=== PATIENT | female | born 1930 | race Caucasian/White ===

== ENCOUNTER 2018-04-30 15:36 | Emergency (ER) | payer OTHER ==
--- NOTE | 2018-04-30 16:21 | RAD REPORT ---
EXAM DESCRIPTION: CT - CTHCSPWOC - 04/30/2018 4:00 pm CLINICAL HISTORY: Trauma, head and neck injury. fall, head injury COMPARISON: Head C Spine Mpr Wo Con dated 08/08/2016 TECHNIQUE: Axial 5 mm thick images of the head were obtained. Axial 2 mm thick images of the cervical spine were obtained with sagittal and coronal reconstruction images generated and reviewed. All CT scans are performed using dose optimization technique as appropriate and may include automated exposure control or mA/KV adjustment according to patient size. FINDINGS: CT HEAD WITHOUT CONTRAST: No acute hemorrhage, hydrocephalus or extra-axial collection is identified.Mild generalized brain atr ophy is present with mild periventricular and deep white matter chronic microvascular ischemic change s.No areas of brain edema or midline shift. The paranasal sinuses and mastoids are clear.The calvarium is intact. CT CERVICAL SPINE WITHOUT CONTRAST: No fracture or subluxation.Moderate lower cervical degenerative changes.No prevertebral soft tissues swelling is identified. IMPRESSION: No acute intracranial or cervical spine findings. Moderate lower cervical spondylosis.
--- NOTE | 2018-04-30 16:34 | RAD REPORT ---
EXAM DESCRIPTION: RAD - Pelvis - 04/30/2018 4:19 pm CLINICAL HISTORY: PAIN Trauma, fall, pain. COMPARISON: Pelvis dated 06/25/2017 FINDINGS: Left total hip arthroplasty noted. No hardware complication evident. Degenerative changes are present in the right hip. No acute fracture or dislocation seen. IMPRESSION: No acute process identified.
--- NOTE | 2018-04-30 16:35 | RAD REPORT ---
EXAM DESCRIPTION: RAD - Hip Left 2 View - 04/30/2018 4:25 pm CLINICAL HISTORY: PAIN Fall, trauma, left hip pain COMPARISON: Hip Left 2 View dated 06/25/2017 FINDINGS: Left total hip arthroplasty is noted. No evidence of hardware complication. Vascular calci fications are present. An acute fracture is not detected.
--- NOTE | 2018-04-30 16:37 | RAD REPORT ---
EXAM DESCRIPTION: RAD - Femur Left - 04/30/2018 4:25 pm CLINICAL HISTORY: PAIN Fall, left hip pain COMPARISON: Pelvis dated 04/30/2018; Hip Left 2 View dated 04/30/2018 FINDINGS: Left total hip arthroplasty is noted. No evidence of hardware complication. 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 No joint effusion. No acute fracture or dislocation seen. IMPRESSION: No acute finding evident.
--- NOTE | 2018-04-30 16:49 | EDPHYS ---
Physician Documentation [facility] Name: Zeynep Stein Age: 87 yrs Sex: Female : 1930 Arrival Date: 04/30/2018 Time: 15:40 Bed 18 Private MD: ED Physician Boni Alejandre HPI: 04/30 16:16 This 87 yrs old Female presents to ER via EMS with complaints of Fall Injury. rn 16:16 Details of fall: The patient fell from an upright position. Onset: The symptoms/episode rn began/occurred just prior to arrival. Associated injuries: The patient sustained injury to the head, left hip. Severity of symptoms: At their worst the symptoms were mild, in the emergency department the symptoms are unchanged. The patient has experienced a previous episode. The patient has been recently seen by a physician:. 1 week s/p hip surgery, fell today from standing, hit head on bookshelf, then hit head on ground, no LOC, remembers all event. Reports mild pain to left hip.. Historical: - Allergies: 17:05 PENICILLINS; sg 17:05 Keflex; sg 17:05 Sulfa (Sulfonamide Antibiotics); sg - PMHx: 17:05 breast cancer; Diabetes - NIDDM; Hypothyroidism; sg - PSHx: 17:05 Hysterectomy; R side breast surgery and removal of lymphnodes; sg - Immunization history: Last tetanus immunization:. - Family history:: not pertinent. - Social history:: Smoking status: Patient/guardian denies using tobacco. - Hospitalizations: : No recent hospitalization is reported. ROS: 16:16 Constitutional: Negative for fever, chills, and weight loss, Eyes: Negative for injury, rn pain, redness, and discharge, Neck: Negative for injury, pain, and swelling, Cardiovascular: Negative for chest pain, palpitations, and edema, Respiratory: Negative for shortness of breath, cough, wheezing, and pleuritic chest pain, Abdomen/GI: Negative for abdominal pain, nausea, vomiting, diarrhea, and constipation, MS/Extremity: + left hip pain Skin: Negative for injury, rash, and discoloration, Neuro: + headache, no weakness/numbness Exam: 16:16 Constitutional: This is a well developed, well nourished patient who is awake, alert, rn and in no acute distress. Head/Face: Normocephalic, atraumatic. Eyes: Pupils equal round and reactive to light, extra-ocular motions intact. Lids and lashes normal. Conjunctiva and sclera are non-icteric and not injected. Cornea within normal limits. Periorbital areas with no swelling, redness, or edema. Neck: in ccollar, no midline tenderness Cardiovascular: Regular rate and rhythm with a normal S1 and S2. No gallops, murmurs, or rubs. Normal PMI, no JVD. No pulse deficits. Respiratory: Lungs have equal breath sounds bilaterally, clear to auscultation and percussion. No rales, rhonchi or wheezes noted. No increased work of breathing, no retractions or nasal flaring. Abdomen/GI: Soft, non-tender, with normal bowel sounds. No distension or tympany. No guarding or rebound. No evidence of tenderness throughout. Back: No spinal tenderness. No costovertebral tenderness. Full range of motion. MS/ Extremity: Pulses equal, no cyanosis. Neurovascular intact. + mild tenderness mid left thigh and proximal thigh Neuro: Awake and alert, GCS 15, oriented to person, place, time, and situation. Cranial nerves II-XII grossly intact. Motor strength 5/5 in all extremities. Sensory grossly intact. Vital Signs: 15:40 BP 162 / 70; Pulse 87; Resp 16; Pulse Ox 96% on R/A; Pain 10/10; sg [place] Coma Score: 15:46 Eye Response: spontaneous(4). Verbal Response: oriented(5). Motor Response: obeys iw commands(6). Total: 15. Trauma Score (Adult): 15:46 Eye Response: spontaneous(1); Verbal Response: oriented(1); Motor Response: obeys iw commands(2); Systolic BP: > 89 mm Hg(4); Respiratory Rate: 10 to 29 per min(4); [place] Score: 15; Trauma Score: 12 MDM: 15:41 Patient medically screened. rn 16:47 Differential diagnosis: contusion, fracture, sprain, strain. Differential diagnosis: rn closed head injury. Data reviewed: vital signs, nurses notes, lab test result(s), radiologic studies, CT scan, plain films, and as a result, I will discharge patient. Counseling: I had a detailed discussion with the patient and/or guardian regarding: the historical points, exam findings, and any diagnostic results supporting the discharge/admit diagnosis, radiology results, the need for outpatient follow up, to return to the emergency department if symptoms worsen or persist or if there are any questions or concerns that arise at home. Special discussion: I discussed with the patient/guardian in detail that at this point there is no indication for admission to the hospital. It is understood, however, that if the symptoms persist or worsen the patient needs to return immediately for re-evaluation. 04/30 15:48 Order name: CT Head C Spine; Complete Time: 16:37 rn 04/30 15:48 Order name: XRAY Pelvis; Complete Time: 16:37 rn 04/30 15:48 Order name: XRAY Hip LEFT 2 view; Complete Time: 16:37 rn 04/30 15:48 Order name: XRAY Femur LEFT; Complete Time: 16:47 rn Administered Medications: 17:16 Drug: [place] (7.5 mg-325 mg) 1 tabs Route: PO; sg 18:30 Follow up: Response: No adverse reaction; Pain is decreased sg Disposition: 04/30/18 16:48 Discharged to Home. Impression: Contusion of left hip, Superficial injury of head. - Condition is Stable. - Discharge Instructions: Contusion, Head Injury, Adult. - Medication Reconciliation Form, Thank You Letter, Antibiotic Education, Prescription Opioid Use form. - Follow up: Private Physician; When: As needed; Reason: Recheck today's complaints, Re-evaluation by your physician. - Problem is new. - Symptoms have improved. Signatures: Dispatcher [employer] EDJeremy Lowe RN RN Boni Alejandre MD MD turnstile collector: (The following items were deleted from the chart) 17:47 16:48 04/30/2018 16:48 Discharged to Home. Impression: Contusion of left hip; sg Superficial injury of head. Condition is Stable. Forms are Medication Reconciliation Form, Thank You Letter, Antibiotic Education, Prescription Opioid Use. Follow up: Private Physician; When: As needed; Reason: Recheck today's complaints, Re-evaluation by your physician. Problem is new. Symptoms have improved. rn
--- NOTE | 2018-04-30 16:49 | ER ---
Nurse's Notes [facility] Name: Zeynep Stein Age: 87 yrs Sex: Female : 1930 Arrival Date: 04/30/2018 Time: 15:40 Bed 18 Private MD: Diagnosis: Contusion of left hip;Superficial injury of head Presentation: 04/30 15:42 Presenting complaint: EMS states: pt fell from standing at home, was recently iw discharged from [facility] rehab for left hip fracture, pt hit back of head on dresser, c/o pain to head, neck, left hip. Care prior to arrival: Cervical collar in place. Mechanism of Injury: Fall from standing position. Trauma event details: Injury occurred in the [facility], Injury occurred: at home. Injury occurred: April 30, 2018. 15:42 Acuity: SAQIB 3 iw 15:42 Method Of Arrival: EMS: [facility] iw 16:00 Transition of care: patient was not received from another setting of care. Onset of sg symptoms was April 30, 2018. Risk Assessment: Do you want to hurt yourself or someone else? Patient reports no desire to harm self or others. Initial Sepsis Screen: Does the patient meet any 2 criteria? No. Patient's initial sepsis screen is negative. Does the patient have a suspected source of infection? No. Patient's initial sepsis screen is negative. Triage Assessment: 16:00 General: Appears in no apparent distress. uncomfortable, Behavior is calm, cooperative, sg appropriate for age. Trauma Activation: Alert Physician: ED Physician; Name: Dr. Alejandre; Notified At: 15:35; Arrived At: 15:35 Physician: General Surgeon; Name: N/A; Notified At: 15:35; Arrived At: Specialty not needed Physician: Radiology; Name: Whit Mason; Notified At: 15:35; Arrived At: 15:35 Physician: Respiratory; Name: N/A; Notified At: 15:35; Arrived At: N/A Physician: Lab; Name: N/A; Notified At: 15:35; Arrived At: N/A Historical: - Allergies: 17:05 PENICILLINS; sg 17:05 Keflex; sg 17:05 Sulfa (Sulfonamide Antibiotics); sg - PMHx: 17:05 breast cancer; Diabetes - NIDDM; Hypothyroidism; sg - PSHx: 17:05 Hysterectomy; R side breast surgery and removal of lymphnodes; sg - Immunization history: Last tetanus immunization:. - Family history:: not pertinent. - Social history:: Smoking status: Patient/guardian denies using tobacco. - Hospitalizations: : No recent hospitalization is reported. Screenin:00 Abuse screen: Denies threats or abuse. Denies injuries from another. Nutritional sg screening: No deficits noted. Tuberculosis screening: No symptoms or risk factors identified. Never had TB. Fall Risk None identified. Assessment: 16:00 General: Appears in no apparent distress. uncomfortable, well groomed, well developed, sg well nourished, Behavior is calm, cooperative, appropriate for age. Pain: Complains of pain in left hip Pain does not radiate. Quality of pain is described as aching, sharp. Neuro: Level of Consciousness is awake, alert, obeys commands, Oriented to person, place, time, situation, [place] Steward are equal bilaterally Moves all extremities. Speech is normal, Facial symmetry appears normal. Cardiovascular: Heart tones S1 S2 present Capillary refill is brisk in bilateral fingers toes Patient's skin is warm and dry. Respiratory: Airway is patent Respiratory effort is even, unlabored, Respiratory pattern is regular, symmetrical, Breath sounds are clear bilaterally. GI: No signs and/or symptoms were reported involving the gastrointestinal system. Abdomen is round non-distended. : No signs and/or symptoms were reported regarding the genitourinary system. EENT: No signs and/or symptoms were reported regarding the EENT system. Derm: Skin is pink, warm \T\ dry. Musculoskeletal: Circulation, motion, and sensation intact. Swelling absent Reports pain in left hip. Vital Signs: 15:40 BP 162 / 70; Pulse 87; Resp 16; Pulse Ox 96% on R/A; Pain 10/10; sg [place] Coma Score: 15:46 Eye Response: spontaneous(4). Verbal Response: oriented(5). Motor Response: obeys iw commands(6). Total: 15. Trauma Score (Adult): 15:46 Eye Response: spontaneous(1); Verbal Response: oriented(1); Motor Response: obeys commands(2); Systolic BP: > 89 mm Hg(4); Respiratory Rate: 10 to 29 per min(4); [place] Score: 15; Trauma Score: 12 ED Course: 15:40 Patient arrived in ED. sg 15:41 Boni Alejandre MD is Attending Physician. rn 15:45 Triage completed. iw 15:45 Patient has correct armband on for positive identification. Placed in gown. Bed in low mh5 position. Side rails up X 1. Side rails up X2. Warm blanket given. Pillow given. cardiac monitor technician on. Pulse ox on. NIBP on. 15:[address] via stretcher. 16:00 CT Head C Spine In Process Unspecified. EDMS 16:00 Arm band placed on. sg 16:00 No provider procedures requiring assistance completed. Patient did not have IV access sg during this emergency room visit. 16:04 CT completed. Patient tolerated procedure well. Patient moved to radiology. 16:17 X-ray completed. Patient tolerated procedure well. kc2 16:17 XRAY Pelvis In Process Unspecified. EDMS 16:17 XRAY Hip LEFT 2 view In Process Unspecified. EDMS 16:17 XRAY Femur LEFT In Process Unspecified. EDMS 16:17 Patient moved back from radiology. [facility] 16:36 Jeremy Bermeo, RN is Primary Nurse. sg Administered Medications: 17:16 Drug: [place] (7.5 mg-325 mg) 1 tabs Route: PO; sg 18:30 Follow up: Response: No adverse reaction; Pain is decreased sg Outcome: 16:48 Discharge ordered by . rn 17:40 Discharged to home ambulatory, ambulatory to wheelchair, then from wheelchair to car sg 17:40 Condition: good 17:40 Discharge instructions given to patient, family, protective services social worker, Instructed on discharge instructions, follow up and referral plans. Demonstrated understanding of instructions. 17:47 Patient left the ED. sg Signatures: Dispatcher [employer] EDIL Jeremy Bermeo RN RN sg Hagler, Ervin Tatyana Solano RN RN Boni Alejandre MD MD rn Carr, Kelsie [place] [id number]
[2018-04-30] MEDS ORDERED: HYDROCODONE/APAP 7.5/325 MG TAB ONE (17:11)
[2018-04-30 19:08] VITALS: BP 162/70; O2SAT 96
== END 2018-04-30 17:47 | disposition home or self-care (01) ==
LOC: ER 15:36
DX: S70.02XA Contusion of left hip, initial encounter (principal); S00.90XA Unspecified superficial injury of unspecified part of head, initial encounter; W18.39XA Other fall on same level, initial encounter; Y93.9 Activity, unspecified; Y92.009 Unspecified place in unspecified non-institutional (private) residence as the place of occurrence of the external cause; Z85.3 Personal history of malignant neoplasm of breast; Z88.0 Allergy status to penicillin; Z88.1 Allergy status to other antibiotic agents; Z88.2 Allergy status to sulfonamides
CPT/HCPCS: 70450; 72125; 72170; 99285

== ENCOUNTER 2018-06-22 08:12 | Emergency (ER) | payer OTHER ==
--- NOTE | 2018-06-22 09:28 | RAD REPORT ---
EXAM DESCRIPTION: VAS - Extremity Venous Uni Ltd - 06/22/2018 8:57 am CLINICAL HISTORY: Leg pain and swelling. Preliminary imaging results provided at the time of the study. COMPARISON: None. TECHNIQUE: Real-time sonographic evaluation of the right lower extremity deep venous systems was per formed. FINDINGS: Normal compressibility, flow augmentation, phasic flow and spontaneous flow are identified in the right lower extremity common femoral, superficial femoral, popliteal and posterior tibial vei ns. No intraluminal filling defects seen. IMPRESSION: No DVT in the right lower extremity.
--- NOTE | 2018-06-22 09:36 | EDPHYS ---
Physician Documentation [facility] Name: Zeynep Stein Age: 87 yrs Sex: Female : 1930 Arrival Date: 06/22/2018 Time: 08:14 Bed 6 Private MD: Felipe Benavides H ED Physician Joaquin Garduno HPI: 06/22 09:32 This 87 yrs old Female presents to ER via Wheelchair with complaints of Leg kb Pain. 09:32 The patient presents with pain, that is acute, tenderness. The complaints affect the kb right calf. Context: The problem was sustained at home, resulted from an unknown cause, the patient can fully bear weight, the patient is able to ambulate, Problem is a result from a previous injury: No. Onset: The symptoms/episode began/occurred this morning. Modifying factors: The symptoms are alleviated by nothing. the symptoms are aggravated by nothing. Associated signs and symptoms: Pertinent positives: calf tenderness, Pertinent negatives fever, nausea, numbness, rash, swelling, tingling, vomiting, warmth, weakness. Treatment prior to arrival includes: no previous treatment. Severity of symptoms: At their worst the symptoms were mild, moderate, in the emergency department the symptoms are unchanged. The patient has experienced a previous episode, blood clot in opposite leg. The patient has not recently seen a physician. Pt states she woke up with pain to right calf. Had same pain in left leg in the past caused by a DVT. Denies injury or trauma. Historical: - Allergies: 08:29 Keflex; iw 08:29 PENICILLINS; iw 08:29 Sulfa (Sulfonamide Antibiotics); iw - Home Meds: 08:29 Allopurinol Oral [Active]; gabapentin Oral [Active]; levothyroxine [Active]; lisinopril iw Oral [Active]; Metformin Oral [Active]; propranolol-hydrochlorothiazide Oral [Active]; Triamterene-Hydrochlorothiazid Oral [Active]; - PMHx: 08:29 breast cancer; Diabetes - NIDDM; Hypothyroidism; iw - PSHx: 08:29 Hysterectomy; R side breast surgery and removal of lymphnodes; iw - Immunization history:: Adult Immunizations up to date. - Social history:: Smoking status: Patient/guardian denies using tobacco. - Ebola Screening: : Patient negative for fever greater than or equal to 101.5 degrees Fahrenheit, and additional compatible Ebola Virus Disease symptoms Patient denies exposure to infectious person Patient denies travel to an Ebola-affected area in the 21 days before illness onset No symptoms or risks identified at this time. ROS: 09:32 Constitutional: Negative for fever, chills, and weight loss, Cardiovascular: Negative kb for chest pain, palpitations, and edema, Respiratory: Negative for shortness of breath, cough, wheezing, and pleuritic chest pain, Abdomen/GI: Negative for abdominal pain, nausea, vomiting, diarrhea, and constipation, Back: Negative for injury and pain, : Negative for injury, bleeding, discharge, and swelling, Skin: Negative for injury, rash, and discoloration, Neuro: Negative for headache, weakness, numbness, tingling, and seizure. 09:32 MS/extremity: Positive for pain, tenderness, of the right calf. Exam: 09:32 Constitutional: This is a well developed, well nourished patient who is awake, alert, kb and in no acute distress. Head/Face: Normocephalic, atraumatic. Chest/axilla: Normal chest wall appearance and motion. Nontender with no deformity. No lesions are appreciated. Cardiovascular: Regular rate and rhythm with a normal S1 and S2. No gallops, murmurs, or rubs. Normal PMI, no JVD. No pulse deficits. Respiratory: Lungs have equal breath sounds bilaterally, clear to auscultation and percussion. No rales, rhonchi or wheezes noted. No increased work of breathing, no retractions or nasal flaring. Abdomen/GI: Soft, non-tender, with normal bowel sounds. No distension or tympany. No guarding or rebound. No evidence of tenderness throughout. Skin: Warm, dry with normal turgor. Normal color with no rashes, no lesions, and no evidence of cellulitis. Neuro: Awake and alert, GCS 15, oriented to person, place, time, and situation. Cranial nerves II-XII grossly intact. Motor strength 5/5 in all extremities. Sensory grossly intact. Cerebellar exam normal. Normal gait. 09:32 Musculoskeletal/extremity: Extremities: grossly normal except: noted in the right calf: pain, tenderness, noted in the left leg: swelling, s/p hip replacement, ROM: intact in all extremities, Circulation is intact in all extremities. Sensation intact. Weight bearing: can bear weight with assistance only. Vital Signs: 08:29 BP 153 / 63; Pulse 71; Resp 18; Temp 98.2; Pulse Ox 99% on R/A; Weight 68.04 kg; Height iw 5 ft. 6 in. (167.64 cm); Pain 9/10; 09:30 BP 142 / 66; Pulse 70; Resp 17 S; Pulse Ox 99% on R/A; sg 08:29 Body Mass Index 24.21 (68.04 kg, 167.64 cm) iw MDM: 08:22 Patient medically screened. [facility] 09:32 Data reviewed: vital signs, nurses notes. Data interpreted: Pulse oximetry: on room air kb is 99 %. Interpretation: normal. Counseling: I had a detailed discussion with the patient and/or guardian regarding: the historical points, exam findings, and any diagnostic results supporting the discharge/admit diagnosis, radiology results, the need for outpatient follow up, a family practitioner, to return to the emergency department if symptoms worsen or persist or if there are any questions or concerns that arise at home. 06/22 08:26 Order name: US Extremity Venous Unilateral Ltd; Complete Time: 09:30 kb Administered Medications: No medications were administered Disposition: 11:42 Co-signature as Attending Physician, Joaquin Garduno MD I agree with the assessment and [facility] plan of care. Disposition: 06/22/18 09:35 Discharged to Home. Impression: Pain in right lower leg. - Condition is Stable. - Discharge Instructions: Musculoskeletal Pain. - Medication Reconciliation Form, Thank You Letter, Antibiotic Education, Prescription Opioid Use form. - Follow up: Emergency Department; When: As needed; Reason: Worsening of condition. Follow up: Private Physician; When: 2 - 3 days; Reason: Recheck today's complaints, Continuance of care, Re-evaluation by your physician. Signatures: Dispatcher [employer] Debbie Mccarthy, ISACC MORFIN-Leidy Neff Corey, MD MD cha Williams, Irene, RN RN iw Corrections: (The following items were deleted from the chart) 09:42 09:35 06/22/2018 09:35 Discharged to Home. Impression: Pain in right lower leg. bd Condition is Stable. Forms are Medication Reconciliation Form, Thank You Letter, Antibiotic Education, Prescription Opioid Use. Follow up: Emergency Department; When: As needed; Reason: Worsening of condition. Follow up: Private Physician; When: 2 - 3 days; Reason: Recheck today's complaints, Continuance of care, Re-evaluation by your physician. kb
--- NOTE | 2018-06-22 09:36 | ER ---
Nurse's Notes [facility] Name: Zeynep Stein Age: 87 yrs Sex: Female : 1930 Arrival Date: 06/22/2018 Time: 08:14 Bed 6 Private MD: Felipe Benavides H Diagnosis: Pain in right lower leg Presentation: 06/22 08:28 Presenting complaint: Patient states: woke up this morning with pain to right calf, iw recent left hip replacement 2 months ago. Transition of care: patient was not received from another setting of care. Onset of symptoms was June 22, 2018. Risk Assessment: Do you want to hurt yourself or someone else? Patient reports no desire to harm self or others. Initial Sepsis Screen: Does the patient meet any 2 criteria? No. Patient's initial sepsis screen is negative. Does the patient have a suspected source of infection? No. Patient's initial sepsis screen is negative. Care prior to arrival: None. 08:28 Method Of Arrival: Wheelchair iw 08:28 Acuity: SAQIB 3 iw Historical: - Allergies: 08:29 Keflex; iw 08:29 PENICILLINS; iw 08:29 Sulfa (Sulfonamide Antibiotics); iw - Home Meds: 08:29 Allopurinol Oral [Active]; gabapentin Oral [Active]; levothyroxine [Active]; lisinopril iw Oral [Active]; Metformin Oral [Active]; propranolol-hydrochlorothiazide Oral [Active]; Triamterene-Hydrochlorothiazid Oral [Active]; - PMHx: 08:29 breast cancer; Diabetes - NIDDM; Hypothyroidism; iw - PSHx: 08:29 Hysterectomy; R side breast surgery and removal of lymphnodes; iw - Immunization history:: Adult Immunizations up to date. - Social history:: Smoking status: Patient/guardian denies using tobacco. - Ebola Screening: : Patient negative for fever greater than or equal to 101.5 degrees Fahrenheit, and additional compatible Ebola Virus Disease symptoms Patient denies exposure to infectious person Patient denies travel to an Ebola-affected area in the 21 days before illness onset No symptoms or risks identified at this time. Screenin:37 Abuse screen: Denies threats or abuse. Denies injuries from another. Nutritional sg screening: No deficits noted. Tuberculosis screening: No symptoms or risk factors identified. Never had TB. Fall Risk None identified. Assessment: 08:34 General: Appears in no apparent distress. comfortable, well groomed, well developed, sg well nourished, Behavior is calm, cooperative, appropriate for age. Pain: Complains of pain in right leg Pain does not radiate. Quality of pain is described as stabbing, throbbing. Neuro: No deficits noted. Cardiovascular: Heart tones S1 S2 present Capillary refill is brisk in bilateral fingers Patient's skin is warm and dry. Pulses are palpable in right posterior tibial artery, right dorsalis pedis artery, left posterior tibial artery and left dorsalis pedis artery Chest pain is denied. Respiratory: Airway is patent Respiratory effort is even, unlabored, Respiratory pattern is regular, symmetrical. GI: Abdomen is non-distended, Abd is soft and non tender X 4 quads. Patient currently denies. : No signs and/or symptoms were reported regarding the genitourinary system. EENT: No signs and/or symptoms were reported regarding the EENT system. Derm: Skin is pink, warm \T\ dry. Musculoskeletal: Circulation, motion, and sensation intact. Range of motion: intact in all extremities, Swelling absent. 09:30 Reassessment: Patient appears in no apparent distress at this time. Clarissa MORFIN at sg bedside updating pt on results, pt and pt leadlighter stated understanding, will continue to monitor. Vital Signs: 08:29 BP 153 / 63; Pulse 71; Resp 18; Temp 98.2; Pulse Ox 99% on R/A; Weight 68.04 kg; Height iw 5 ft. 6 in. (167.64 cm); Pain 9/10; 09:30 BP 142 / 66; Pulse 70; Resp 17 S; Pulse Ox 99% on R/A; sg 08:29 Body Mass Index 24.21 (68.04 kg, 167.64 cm) iw ED Course: 08:14 Patient arrived in ED. mr 08:15 Felipe Benavides DO is Private Physician. mr 08:21 [facility] kb 08:21 Joaquin Garduno MD is Attending Physician. kb 08:25 Jeremy Bermeo, RN is Primary Nurse. sg 08:28 Triage completed. iw 08:29 Arm band placed on. iw 08:37 Patient has correct armband on for positive identification. Bed in low position. Call sg light in reach. Side rails up X2. Pulse ox on. NIBP on. Warm blanket given. Head of bed elevated. 08:57 US Extremity Venous Unilateral Ltd In Process Unspecified. EDMS 08:58 Ultrasound completed. hr 09:40 No provider procedures requiring assistance completed. Patient did not have IV access sg during this emergency room visit. Administered Medications: No medications were administered Outcome: 09:35 Discharge ordered by . paula 09:40 Discharged to home via wheelchair, with family. sg 09:40 Condition: good 09:40 Discharge instructions given to patient, leadlighter, Instructed on discharge instructions, follow up and referral plans. safety practices, Demonstrated understanding of instructions, follow-up care. 09:42 Patient left the ED. bd Signatures: Dispatcher [employer] EDMS Debbie Collins, RADIO ELECTRICIAN-C RADIO ELECTRICIAN-Ckb Leidy Urban Steven, MARIYA MERAZ sg Ilana Gill mr Shanell Miller Tatyana Solano, MARIYA MERAZ iw
[2018-06-22 09:46] VITALS: BP 153/63; TEMP 98.2; O2SAT 99
== END 2018-06-22 09:42 | disposition home or self-care (01) ==
LOC: ER 08:12
DX: M79.661 Pain in right lower leg (principal); E11.9 Type 2 diabetes mellitus without complications; E03.9 Hypothyroidism, unspecified; Z85.3 Personal history of malignant neoplasm of breast; Z88.0 Allergy status to penicillin; Z88.1 Allergy status to other antibiotic agents; Z88.2 Allergy status to sulfonamides; Z86.718 Personal history of other venous thrombosis and embolism
CPT/HCPCS: 93971; 99283

== ENCOUNTER 2019-03-29 09:46 | Emergency (ER) | payer OTHER ==
--- NOTE | 2019-03-29 10:17 | RAD REPORT ---
EXAM DESCRIPTION: CT - CTHCSPWOC - 03/29/2019 10:04 am CLINICAL HISTORY: Trauma, head and neck injury. fall, head and neck pain/injury COMPARISON: Head C Spine Mpr Wo Con dated 04/30/2018; Head C Spine Mpr Wo Con dated 08/08/2016 TECHNIQUE: Axial 5 mm thick images of the head were obtained. Axial 2 mm thick images of the cervical spine were obtained with sagittal and coronal reconstruction images generated and reviewed. All CT scans are performed using dose optimization technique as appropriate and may include automated exposure control or mA/KV adjustment according to patient size. FINDINGS: CT HEAD WITHOUT CONTRAST: No acute hemorrhage, hydrocephalus or extra-axial collection is identified.Mild generalized brain atr ophy is present with mild periventricular and deep white matter chronic microvascular ischemic change s.No areas of brain edema or midline shift. The paranasal sinuses and mastoids are essentially clear.The calvarium is intact. CT CERVICAL SPINE WITHOUT CONTRAST: No fracture or subluxation.Moderate lower cervical degenerative changes present with posterior osteop hyte.No prevertebral soft tissues swelling is identified. IMPRESSION: No acute intracranial or cervical spine findings.
--- NOTE | 2019-03-29 11:02 | RAD REPORT ---
EXAM DESCRIPTION: RAD - Pelvis - 03/29/2019 10:35 am CLINICAL HISTORY: BLUNT TRAUMA Trauma, pain COMPARISON: Pelvis dated 04/30/2018; Femur Left dated 03/29/2019 FINDINGS: AP pelvis and left femur- multiple projections are submitted. Left total hip arthroplasty seen. No hardware complication is seen. No acute fracture or dislocation evident.
--- NOTE | 2019-03-29 11:03 | RAD REPORT ---
EXAM DESCRIPTION: RAD - Elbow Left 3 View - 03/29/2019 10:37 am CLINICAL HISTORY: PAIN Trauma, fall, pain COMPARISON: No comparisons FINDINGS: Mild arthritic changes are present. No acute fracture or dislocation seen.
--- NOTE | 2019-03-29 11:03 | RAD REPORT ---
EXAM DESCRIPTION: RAD - Chest Single View - 03/29/2019 10:36 am CLINICAL HISTORY: BLUNT CHEST TRAUMA Chest pain. COMPARISON: Chest Single View dated 03/08/2017; CHEST SINGLE VIEW dated 05/12/2009 FINDINGS: Portable technique limits examination quality. The lungs are grossly clear. The heart is normal in size. No displaced fractures. IMPRESSION: No acute intrathoracic process suspected.
--- NOTE | 2019-03-29 11:05 | RAD REPORT ---
EXAM DESCRIPTION: RAD - Ribs Left - 03/29/2019 10:40 am CLINICAL HISTORY: PAIN Fall, pain COMPARISON: Chest Single View dated 03/29/2019 FINDINGS: No displaced rib fracture seen. No aggressive rib lesion.
--- NOTE | 2019-03-29 11:11 | RAD REPORT ---
EXAM DESCRIPTION: RAD - Femur Left - 03/29/2019 10:39 am CLINICAL HISTORY: BLUNT TRAUMA Trauma, pain COMPARISON: Pelvis dated 04/30/2018; Femur Left dated 03/29/2019 FINDINGS: AP pelvis and left femur- multiple projections are submitted. Left total hip arthroplasty seen. No hardware complication is seen. No acute fracture or dislocation evident.
--- NOTE | 2019-03-29 11:50 | ER ---
Nurse's Notes [facility] Name: Zeynep Stein Age: 88 yrs Sex: Female : 1930 Arrival Date: 03/29/2019 Time: 09:47 Bed 8 Private MD: Diagnosis: Superficial injury of head;Contusion of left hip;Contusion of left elbow Presentation: 03/29 09:48 Presenting complaint: EMS states: pt fell while working outside and landed on LEFT hip tw2 on the concrete about 30 minutes prior to our arrival, c/o LEFT hip. Transition of care: patient was not received from another setting of care. Onset of symptoms was March 29, 2019. Risk Assessment: Do you want to hurt yourself or someone else? Patient reports no desire to harm self or others. Initial Sepsis Screen: Does the patient meet any 2 criteria? No. Patient's initial sepsis screen is negative. Does the patient have a suspected source of infection? No. Patient's initial sepsis screen is negative. Care prior to arrival: None. 09:48 Acuity: SAQIB 2 tw2 09:48 Method Of Arrival: EMS: [facility] tw2 09:48 Mechanism of Injury: Fall from standing position. Trauma event details: Injury occurred tw2 in the [facility]. Triage Assessment: 09:55 General: Appears in no apparent distress. Behavior is calm, cooperative, appropriate tw2 for age. Pain: Complains of pain in LEFT hip. Trauma Activation: Alert Physician: ED Physician; Name: ; Notified At: ; Arrived At: Physician: General Surgeon; Name: ; Notified At: ; Arrived At: Physician: Radiology; Name: ; Notified At: ; Arrived At: Physician: Respiratory; Name: ; Notified At: ; Arrived At: Physician: Lab; Name: ; Notified At: ; Arrived At: Historical: - Allergies: 09:54 Keflex; sg 09:54 PENICILLINS; sg 09:54 Sulfa (Sulfonamide Antibiotics); sg 10:02 cephalexin; tw2 - Home Meds: 10:02 Triamterene-Hydrochlorothiazid Oral [Active]; lisinopril 20 mg Oral tab [Active]; tw2 levothyroxine 100 mcg tab [Active]; lorazepam 2 mg Oral tab [Active]; meloxicam 15 mg Oral tab [Active]; Metformin Oral [Active]; levothyroxine [Active]; glimepiride 4 mg Oral tab [Active]; lisinopril Oral [Active]; Phenylephrine Opht [Active]; propranolol-hydrochlorothiazide Oral [Active]; gabapentin 600 mg Oral tab [Active]; gabapentin Oral [Active]; Allopurinol Oral [Active]; - PMHx: 09:54 breast cancer; Diabetes - NIDDM; Hyperlipidemia; Hypertension; Hypothyroidism; sg - PSHx: 09:54 Hysterectomy; R side breast surgery and removal of lymphnodes; sg - Immunization history:: Adult Immunizations up to date. - Social history:: Smoking status: Patient/guardian denies using tobacco. - Immunization history: Last tetanus immunization: unknown. - Ebola Screening: : Patient negative for fever greater than or equal to 101.5 degrees Fahrenheit, and additional compatible Ebola Virus Disease symptoms Patient denies exposure to infectious person Patient denies travel to an Ebola-affected area in the 21 days before illness onset No symptoms or risks identified at this time. - Family history:: not pertinent. - Hospitalizations: : No recent hospitalization is reported. Screenin:59 Abuse screen: Denies threats or abuse. Nutritional screening: No deficits noted. tw2 Tuberculosis screening: No symptoms or risk factors identified. Fall Risk Secondary diagnosis (15 points) impaired mobility. Primary Survey: 09:56 NO uncontrolled hemorrhage observed. A: The patient is alert. Airway: patent. tw2 Breathing/Chest: Respiratory pattern: regular, Respiratory effort: spontaneous, unlabored, Breath sounds: clear, bilaterally. Chest inspection: symmetrical rise and fall of the chest. Circulation: Heart tones present. Skin temperature: warm, dry. Disability Alert. Exposure/Environment: All clothing and personal items were removed. Forensic evidence collection is not deemed to be indicated at this time. Items placed in patient belonging bag. There is no evidence of uncontrolled external bleeding. Obvious injury(ies) are noted at this time: Skin tear to LEFT elbow A warming method has been applied: A warm blanket has been provided to the patient. Secondary Survey: 09:58 HEENT: No deficits noted. Gastrointestinal: No deficits noted. Abdomen is soft, Bowel tw2 sounds present in all quadrants. : No signs and/or symptoms were reported regarding the genitourinary system. Musculoskeletal: Reports pain in LEFT hip. Assessment: 09:50 Reassessment: pt transported to radiology. sg 10:39 Reassessment: pt remains off the unit in radiology at this time. sg 11:00 Reassessment: Patient appears in no apparent distress at this time. Patient and/or sg family updated on plan of care and expected duration. Pain level reassessed. pt returned from radiology at this time, will obtain blood specimen as ordered. 11:21 Reassessment: Patient appears in no apparent distress at this time. two attempts to sg obtain blood specimen, pt left arm stick only due to lumpectomy to right arm, Lab contacted for assistance spoke with [facility] to department for the assist. Vital Signs: 09:50 BP 159 / 68; Pulse 57; Resp 17; Temp 97.9(O); Pulse Ox 97% on R/A; Weight 68.04 kg (R); tw2 Height 5 ft. 6 in. (167.64 cm) (R); Pain 6/10; 09:51 BP 159 / 68; Pulse 56; Resp 18; Temp 97.2; Pulse Ox 97% on R/A; sg 10:50 BP 142 / 66; Pulse 59; Resp 18; Temp 97.2; Pulse Ox 98% on R/A; Pain 4/10; sg 09:50 Body Mass Index 24.21 (68.04 kg, 167.64 cm) tw2 [place] Coma Score: 09:56 Eye Response: spontaneous(4). Verbal Response: oriented(5). Motor Response: obeys tw2 commands(6). Total: 15. 10:50 Eye Response: spontaneous(4). Verbal Response: oriented(5). Motor Response: obeys sg commands(6). Total: 15. Trauma Score (Adult): 09:56 Eye Response: spontaneous(1); Verbal Response: oriented(1); Motor Response: obeys tw2 commands(2); Systolic BP: > 89 mm Hg(4); Respiratory Rate: 10 to 29 per min(4); Ines Score: 15; Trauma Score: 12 10:50 Eye Response: spontaneous(1); Verbal Response: oriented(1); Motor Response: obeys sg commands(2); Systolic BP: > 89 mm Hg(4); Respiratory Rate: 10 to 29 per min(4); [place] Score: 15; Trauma Score: 12 ED Course: 09:47 Patient arrived in ED. rn 09:47 Boni Alejandre MD is Attending Physician. rn 09:48 Placed in gown. Bed in low position. Side rails up X2. phototypesetting equipment monitor on. Pulse ox on. tw2 NIBP on. Warm blanket given. 09:48 Thermoregulation: warm blanket given to patient. tw2 09:50 Triage completed. tw2 09:50 Arm band placed on. tw2 09:51 Jeremy Bermeo RN is Primary Nurse. 09:55 CT completed. Patient tolerated procedure well. Patient moved to CT via stretcher. Patient moved back from CT. 09:59 Patient maintains SpO2 saturation greater than 95% on room air. tw2 10:05 CT Head C Spine In Process Unspecified. EDMS 10:15 Patient moved to radiology via stretcher. mh1 10:35 XRAY Elbow LEFT 3 view In Process Unspecified. EDMS 10:35 XRAY Pelvis In Process Unspecified. EDMS 10:35 XRAY Femur LEFT In Process Unspecified. EDMS 10:35 XRAY Chest (1 view) In Process Unspecified. EDMS 10:35 XRAY Ribs LEFT In Process Unspecified. EDMS 10:51 X-ray completed. Patient tolerated procedure well. Patient moved back from radiology. Administered Medications: No medications were administered Outcome: 11:49 Discharge ordered by . rn 12:22 Patient left the ED. aa5 Signatures: Dispatcher [employer] EDMS Jeremy Bermeo RN RN Liss Durbin [facility] Karyn Chase Boni Alejandre MD MD rn Calderon, Audri, RN RN aa5 Cony Ruiz Tara, RN RN tw2
--- NOTE | 2019-03-29 11:50 | EDPHYS ---
Physician Documentation [facility] Name: Zeynep Stein Age: 88 yrs Sex: Female : 1930 Arrival Date: 03/29/2019 Time: 09:47 Bed 8 Private MD: ED Physician Boni Alejandre HPI: 03/29 11:41 This 88 yrs old Female presents to ER via EMS with complaints of Fall Injury. rn 11:41 Details of fall: The patient fell from an upright position, while walking. Onset: The rn symptoms/episode began/occurred just prior to arrival. Associated injuries: The patient sustained injury to the head, neck injury, injury to the chest, left hip, left elbow. Severity of symptoms: At their worst the symptoms were mild, in the emergency department the symptoms are unchanged. The patient has experienced a previous episode. 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 Reports mild neck pain, left elbow pain, left hip pain. . Historical: - Allergies: 09:54 Keflex; sg 09:54 PENICILLINS; sg 09:54 Sulfa (Sulfonamide Antibiotics); sg 10:02 cephalexin; tw2 - Home Meds: 10:02 Triamterene-Hydrochlorothiazid Oral [Active]; lisinopril 20 mg Oral tab [Active]; tw2 levothyroxine 100 mcg tab [Active]; lorazepam 2 mg Oral tab [Active]; meloxicam 15 mg Oral tab [Active]; Metformin Oral [Active]; levothyroxine [Active]; glimepiride 4 mg Oral tab [Active]; lisinopril Oral [Active]; Phenylephrine Opht [Active]; propranolol-hydrochlorothiazide Oral [Active]; gabapentin 600 mg Oral tab [Active]; gabapentin Oral [Active]; Allopurinol Oral [Active]; - PMHx: 09:54 breast cancer; Diabetes - NIDDM; Hyperlipidemia; Hypertension; Hypothyroidism; sg - PSHx: 09:54 Hysterectomy; R side breast surgery and removal of lymphnodes; sg - Immunization history:: Adult Immunizations up to date. - Social history:: Smoking status: Patient/guardian denies using tobacco. - Immunization history: Last tetanus immunization: unknown. - Ebola Screening: : Patient negative for fever greater than or equal to 101.5 degrees Fahrenheit, and additional compatible Ebola Virus Disease symptoms Patient denies exposure to infectious person Patient denies travel to an Ebola-affected area in the 21 days before illness onset No symptoms or risks identified at this time. - Family history:: not pertinent. - Hospitalizations: : No recent hospitalization is reported. ROS: 11:41 Constitutional: Negative for fever, chills, and weight loss, Eyes: Negative for injury, rn pain, redness, and discharge, Neck: + neck pain Cardiovascular: + left anterior/lateral rib pain Respiratory: Negative for shortness of breath, cough, wheezing, and pleuritic chest pain, Abdomen/GI: Negative for abdominal pain, nausea, vomiting, diarrhea, and constipation, Back: Negative for injury and pain, MS/Extremity: + left elbow pain, left hip pain Skin: + skin tear left elbow Neuro: Negative for headache, weakness, numbness, tingling, and seizure. Exam: 11:41 Constitutional: This is a well developed, well nourished patient who is awake, alert, rn and in no acute distress. Head/Face: Normocephalic, atraumatic. Neck: NO midline cervical tenderness Chest/axilla: Mild tenderness left inferior/lateral ribs without ecchymosis/crepitus. Cardiovascular: Regular rate and rhythm. No pulse deficits. Respiratory: Lungs have equal breath sounds bilaterally, clear to auscultation. No increased work of breathing, no retractions or nasal flaring. Abdomen/GI: soft, non-tender Back: No spinal tenderness. MS/ Extremity: Pulses equal, no cyanosis. Neurovascular intact. Mild tenderness proximal left femur without gross deformity, no shortening/rotation. + left elbow with 1cm superficial skin tear, no laceration, no active bleeding. Neuro: Awake and alert, GCS 15, oriented to person, place, time, and situation. Cranial nerves II-XII grossly intact. Motor strength 5/5 in all extremities. Sensory grossly intact. Vital Signs: 09:50 BP 159 / 68; Pulse 57; Resp 17; Temp 97.9(O); Pulse Ox 97% on R/A; Weight 68.04 kg (R); tw2 Height 5 ft. 6 in. (167.64 cm) (R); Pain 6/10; 09:51 BP 159 / 68; Pulse 56; Resp 18; Temp 97.2; Pulse Ox 97% on R/A; sg 10:50 BP 142 / 66; Pulse 59; Resp 18; Temp 97.2; Pulse Ox 98% on R/A; Pain 4/10; sg 09:50 Body Mass Index 24.21 (68.04 kg, 167.64 cm) tw2 Philadelphia Coma Score: 09:56 Eye Response: spontaneous(4). Verbal Response: oriented(5). Motor Response: obeys tw2 commands(6). Total: 15. 10:50 Eye Response: spontaneous(4). Verbal Response: oriented(5). Motor Response: obeys sg commands(6). Total: 15. Trauma Score (Adult): 09:56 Eye Response: spontaneous(1); Verbal Response: oriented(1); Motor Response: obeys tw2 commands(2); Systolic BP: > 89 mm Hg(4); Respiratory Rate: 10 to 29 per min(4); Ines Score: 15; Trauma Score: 12 10:50 Eye Response: spontaneous(1); Verbal Response: oriented(1); Motor Response: obeys sg commands(2); Systolic BP: > 89 mm Hg(4); Respiratory Rate: 10 to 29 per min(4); Philadelphia Score: 15; Trauma Score: 12 MDM: 09:48 Patient medically screened. rn 11:43 Differential diagnosis: abrasion, closed head injury, contusion, fracture, sprain, rn strain. Data reviewed: vital signs, nurses notes, radiologic studies, CT scan, plain films, and as a result, I will discharge patient. Counseling: I had a detailed discussion with the patient and/or guardian regarding: the historical points, exam findings, and any diagnostic results supporting the discharge/admit diagnosis, radiology results, the need for outpatient follow up, to return to the emergency department if symptoms worsen or persist or if there are any questions or concerns that arise at home. Special discussion: Based on the patient's history, exam and DX evaluation, there is no indication for emergent intervention or inpatient TX. It is understood by the patient/guardian that if the SXs persist or worsen they need to return immediately for re-evaluation. I discussed with the patient/guardian in detail that at this point there is no indication for admission to the hospital. It is understood, however, that if the symptoms persist or worsen the patient needs to return immediately for re-evaluation. ED course: NO fractures noted on imaging, ct head/cspine negative, will dc home with prn pain meds. Advised against rib splinting and return precautions given/understood.. 11:50 Test interpretation: by ED physician or midlevel provider: plain radiologic studies, rn Xray left elbow without acute fracture/dislocation; Xray pelvis without acute fracture/dislocation; xray left femur without acute fracture/dislocation.. 03/29 09:49 Order name: CT Head C Spine; Complete Time: 11:08 rn 03/29 09:49 Order name: XRAY Elbow LEFT 3 view; Complete Time: 11:08 rn 03/29 09:49 Order name: IV Start; Complete Time: 11:14 rn 03/29 09:49 Order name: XRAY Pelvis; Complete Time: 11:08 rn 03/29 09:49 Order name: XRAY Femur LEFT rn 03/29 09:49 Order name: XRAY Chest (1 view); Complete Time: 11:08 rn 03/29 09:49 Order name: XRAY Ribs LEFT; Complete Time: 11:08 rn Administered Medications: No medications were administered Disposition: 03/29/19 11:49 Discharged to Home. Impression: Superficial injury of head, Contusion of left hip, Contusion of left elbow. - Condition is Stable. - Discharge Instructions: Contusion, Head Injury, Adult, Skin Tear Care, Elbow Contusion, Hip Pain. - Prescriptions for Tylenol- Codeine #3 300-30 mg Oral Tablet - take 1 tablet by ORAL route every 8 hours As needed; 15 tablet. - Medication Reconciliation Form, Thank You Letter, Antibiotic Education, Prescription Opioid Use form. - Follow up: Private Physician; When: As needed; Reason: Recheck today's complaints, Re-evaluation by your physician. - Problem is new. - Symptoms have improved. Signatures: Dispatcher [employer] EDMS Jeremy Bermeo, Boni Lezama RN, MD MD rn Calderon, Audri RN RN aa5 Paulina Hanna RN RN tw2 Corrections: (The following items were deleted from the chart) 11:43 09:51 CBC+H.LAB.BRZ ordered. EDCT EDCT 11:43 09:51 PROTIME (+INR)+COAG.LAB.BRZ ordered. EDMS EDMS 11:43 09:51 PTT, ACTIVATED+COAG.LAB.BRZ ordered. EDMS EDMS 11:44 09:51 BASIC METABOLIC PANEL+C.LAB.BRZ ordered. EDMS EDMS 11:45 11:41 Constitutional: This is a well developed, well nourished patient who is awake, rn alert, and in no acute distress. rn 11:48 11:41 Constitutional: This is a well developed, well nourished patient who is awake, rn alert, and in no acute distress. Head/Face: Normocephalic, atraumatic. Neck: NO midline cervical tenderness Chest/axilla: Mild tenderness left inferior/lateral ribs without ecchymosis/crepitus. Cardiovascular: Regular rate and rhythm. No pulse deficits. Respiratory: Lungs have equal breath sounds bilaterally, clear to auscultation. No increased work of breathing, no retractions or nasal flaring. Abdomen/GI: soft, non-tender Back: No spinal tenderness. MS/ Extremity: Pulses equal, no cyanosis. Neurovascular intact. Mild tenderness proximal left femur without gross deformity, no shortening/rotation. Neuro: Awake and alert, GCS 15, oriented to person, place, time, and situation. Cranial nerves II-XII grossly intact. Motor strength 5/5 in all extremities. Sensory grossly intact. rn 12:22 11:49 03/29/2019 11:49 Discharged to Home. Impression: Superficial injury of head; aa5 Contusion of left hip; Contusion of left elbow. Condition is Stable. Forms are Medication Reconciliation Form, Thank You Letter, Antibiotic Education, Prescription Opioid Use. Follow up: Private Physician; When: As needed; Reason: Recheck today's complaints, Re-evaluation by your physician. Problem is new. Symptoms have improved. rn
[2019-03-29 12:34] VITALS: TEMP 97.2
[2019-03-29 12:35] VITALS: BP 142/66; O2SAT 98
== END 2019-03-29 12:22 | disposition home or self-care (01) ==
LOC: ER 09:46
DX: S00.90XA Unspecified superficial injury of unspecified part of head, initial encounter (principal); S70.02XA Contusion of left hip, initial encounter; S50.02XA Contusion of left elbow, initial encounter; W19.XXXA Unspecified fall, initial encounter; Y93.01 Activity, walking, marching and hiking; Y92.9 Unspecified place or not applicable; Z88.0 Allergy status to penicillin; Z88.1 Allergy status to other antibiotic agents; Z88.2 Allergy status to sulfonamides; Z85.3 Personal history of malignant neoplasm of breast; I10 Essential (primary) hypertension; E03.9 Hypothyroidism, unspecified; E78.5 Hyperlipidemia, unspecified; E11.9 Type 2 diabetes mellitus without complications
CPT/HCPCS: 70450; 71045; 72125; 72170; 99285